=== PATIENT | female | born 1980 | race Caucasian/White ===

== ENCOUNTER 2024-11-18 23:16 | Emergency (ER) | payer OTHER ==
[~2024-11-18] VITALS: Ht 152.4 cm; Wt 103.0 kg
[2024-11-18 23:29] VITALS: O2SAT 98
[2024-11-19] MEDS ORDERED: CYCL10TA21 MT (00:27)
[2024-11-19] MEDS ORDERED: IBUP-2029 MT (00:27)
[2024-11-19] MEDS: IBUPROFEN 600MG TABLET PO ONE (00:30)
[2024-11-19 00:57] VITALS: BP 137/65; PULSE 76; RESP 18; TEMP 36.6; O2SAT 98
== END 2024-11-19 01:05 | disposition home or self-care (01) ==
LOC: ER 23:16
DX: M51.17 Intervertebral disc disorders with radiculopathy, lumbosacral region (principal)
CPT/HCPCS: 99283